=== PATIENT | male | born 1960 | race Caucasian/White ===

== ENCOUNTER → 2019-05-02 | Outpatient (CLI) | payer SELFPAY ==
[2016-05-22 15:55] VITALS: BP 156/74
--- NOTE | 2019-05-02 15:38 | KCIC ---
CT Abdomen and Pelvis without contrast History: Abdominal pain, worsening left flank pain Technique: Noncontrast CT imaging was performed of the abdomen and pelvis. Multiplanar images are reviewed. Exposure: One or more of the following individualized dose reduction techniques were utilized for this examination: 1. Automated exposure control 2. Adjustment of the mA and/or kV according to patient size 3. Use of iterative reconstruction technique. Comparison: None Findings: There is a small 0.2 cm right lower lobe pulmonary nodule seen on the first image series 2. No urolithiasis or hydronephrosis is identified. There is some distention of the urinary bladder. Accurate evaluation of abdominal visceral organs is limited without intravenous contrast. There is no obvious abnormality of the spleen, liver, or pancreas. Gallbladder is present without obvious intraluminal abnormality by CT. There is no adrenal nodularity. Accurate evaluation of bowel is limited without oral contrast. There is no significant free air, free fluid, bowel dilatation. There is no significant inflammatory type change about the bowel. There is facet degenerative change greater inferiorly of the lumbar spine. There is transitional anatomy of the lumbar spine. Disc osteophyte complex and bulge at L4-5 slightly indents the ventral thecal sac, likely degree of mild lateral recess stenosis at this level. There is also mild to moderate left and mild right L4-5 neural foramina compromise. There is mild L4-5 degenerative disc disease. There are nonspecific inguinal nodes, largest on the left about 1.1 cm short axis dimension upper limits of normal. Impression: 1. There is no urolithiasis or hydronephrosis. There is some distention of the urinary bladder. 2. There is a small 0.2 cm right lower lobe pulmonary nodule as seen on the first image. If there are increased risk factors for neoplasm, dedicated chest CT to further evaluate for nodules may be indicated. Regarding the visualized nodule, no additional follow-up is needed if low risk factors for neoplasm, optional 12 follow-up if increased risk factors as per revised Fleischner guidelines. Electronically signed by: Lonnie Goldstein MD (05/02/2019 3:35 PM) [id number]
== END | disposition home or self-care (01) ==
LOC: KCIC 09:55
PROVIDERS: ATTEND Family Medicine
DX: N32.89 Other specified disorders of bladder (principal); R91.1 Solitary pulmonary nodule; M47.816 Spondylosis without myelopathy or radiculopathy, lumbar region; M51.26 Other intervertebral disc displacement, lumbar region; M51.36 Other intervertebral disc degeneration, lumbar region; M25.78 Osteophyte, vertebrae; Z90.49 Acquired absence of other specified parts of digestive tract
CPT/HCPCS: 74176